=== PATIENT | female | born 1990 | race Caucasian/White ===

== ENCOUNTER 2018-03-17 05:12 | Emergency (ER) | payer OTHER ==
[~2018-03-17] VITALS: Ht 177.8 cm; Wt 145.2 kg
[~2018-03-17 05:12] MED LIST: AUGMENTIN 875875 MG PO; IBUPROFEN 800800 MG PO; VENTOLIN HFA 1818 GM INH
[2018-03-17] MEDS ORDERED: VERAPAMIL E.R240 M1 (05:27)
[2018-03-17] MEDS ORDERED: ALDACTONE100 MG (05:27)
[2018-03-17 05:52] LABS: MCH 28.5 pg (26.0-34.0); MCHC 33.3 g/dL (28.0-37.0); MCV 85.7 fL (80.0-100.0); MPV 10.4 fl. (7.2-11.1); NUCLEATED RBCS 0 /100WBC; PLATELET COUNT* 182 thou/uL (150-400); RBC 5.24 mil/uL (4.20-5.00); RDW-CV 13.7 % (10.5-14.5); WBC 12.5 thou/uL (4.0-11.0)
[2018-03-17 06:01] LABS: PLATELET ESTIMATE ADEQUATE; TOXIC GRANULATION 1+
[2018-03-17 06:07] LABS: CALCIUM 8.8 mg/dL (8.5-10.1); POTASSIUM 4.1 mmol/L (3.5-5.1)
[2018-03-17 06:11] LABS: ALBUMIN 3.5 g/dL (3.4-5.0); TOTAL BILIRUBIN 0.6 mg/dL (<0.1-1.0); TOTAL PROTEIN 6.7 g/dL (6.4-8.2)
[2018-03-17 06:31] LABS: ABSOLUTE BASOPHILS 0.1 thou/uL (0.0-0.2); ABSOLUTE EOSINOPHILS 0.1 thou/uL (0.0-0.7); ABSOLUTE LYMPHOCYTES 0.3 thou/uL (0.8-5.3); ABSOLUTE MONOCYTES 0.8 thou/uL (0.0-1.2); ABSOLUTE NEUTROPHILS 11.3 thou/uL (1.6-8.1)
[2018-03-17] MEDS ORDERED: PHENERGAN 25 MG25 M1 PO (06:36)
[2018-03-17] MEDS ORDERED: PHENERGAN12.5 M2 RECTAL (06:36)
[2018-03-17 06:44] VITALS: BP 136/82
== END 2018-03-17 06:45 | disposition home or self-care (01) ==
LOC: M.ERS 05:12
PROVIDERS: Personal Emergency Response Attendant
DX: K52.9 Noninfective gastroenteritis and colitis, unspecified (principal); J45.909 Unspecified asthma, uncomplicated; G43.909 Migraine, unspecified, not intractable, without status migrainosus; K21.9 Gastro-esophageal reflux disease without esophagitis; Z88.2 Allergy status to sulfonamides

== ENCOUNTER → 2020-04-27 | Day surgery (SDC) | payer OTHER ==
[~2020-04-27] MED LIST changes: +ALDACTONE100 MG; +IMITREX 50 MG T50 MG PO; +METRONIDAZOLE45 GM TOP; +OMEPRAZOLE 20 M20 M1 PO; +PHENERGAN 25 MG25 M1 PO; +PHENERGAN12.5 M2 RECTAL; +PROAIR HFA8.5 GM INH; +SPIRONOLACTONE100 M1 PO; +VERAPAMIL E.R240 M1; +VITAMIN D325 MC3 PO
--- NOTE | ~2020-04-27 | PROC ---
[address] [address] PROCEDURE REPORT Name: CARRIEROGE Room: [facility]#: [id number] Admission: 04/27/20 Attend Phys: Elisabeth Rojas MD Discharge: Date of : 86 Report #: [id number] THIS REPORT FOR: cc: Yudelka Laird Stefany RNP ~ [facility],Medical Records Staff For Gi report, please see the Provation report in Perceptive 7 content. By: [id number] Records Staff [facility] /ALEX
[2020-04-27 09:32] LABS: HEMATOCRIT 42.3 % (37.0-47.0)
[2020-04-27 10:05] LABS: CALCIUM 8.4 mg/dL (8.5-10.1); CREATININE 0.8 mg/dL (0.6-1.3); POTASSIUM 3.8 mmol/L (3.5-5.1)
--- NOTE | 2020-05-11 16:06 | PATH ---
[address] [address] PATHOLOGY RPT PROCEDURE Name: ROGE THOMAS Room: [facility].#: [id number] Admission: 04/27/20 Date of : 86 Discharge: Report #: [id number] Path Case #: [id number] [facility] Accession Number: [id number] . 01 Material submitted: . PART A: duodenum - DUODENAL BIOPSY R/O CELIAC PART B: esophagus - DISTAL ESOPHAGUS R/O IRREGULAR Z LINES BARRETTS. Modifiers: distal . 01 Clinical history: . GERD . 02 Diagnosis: A. Small bowel "duodenum", endoscopic biopsy: - Duodenal mucosa with mild villous blunting and focal reactive lymphoid hyperplasia. - Negative for dysplasia and malignancy. . B. Esophagus "distal": - Esophageal squamous and gastric cardia mucosa with chronic inflammation and features suggestive of reflux esophagitis. - Negative for intestinal metaplasia, dysplasia, and malignancy. . (MIKHAIL:ailyn; 05/03/2020) [facility] 05/09/2020 1215 Local . 02 Comment: The duodenal biopsy shows mild villous blunting and with a follicular The duodenal biopsy shows mild villous blunting and a prominent reactive lymphoid inflammatory infiltrate. Prominent intra-epithelial lymphocytes, active inflammation, or granulomatous inflammation are not identified. The histologic pattern is not specific and can be seen in several clinical settings, including. celiac disease (and related conditions), infectious etiologies, drug induced injury and in Crohn's disease. Clinical correlation is suggested. . 02 Diagnosis provided by: . Francoise Doe MD, Pathologist NPI- [id number] . 03 Electronically signed: . Francoise Doe MD, Pathologist NPI- [id number] . 01 Gross description: . A. Received in formalin labeled "Roge Thomas, duodenal biopsy" are multiple prieto-brown soft tissue fragments measuring in aggregate 0.6 x 0.3 x 0.1 cm. The specimen is submitted entirely in [place]1. [place] [address] PATHOLOGY RPT PROCEDURE Name: ROGE THOMAS Room: [facility]#: [id number] Admission: 04/27/20 Date of : 86 Discharge: Report #: [id number] Path Case #: [id number] . B. Received in formalin labeled "William, Roge, esophagus biopsy" are two prieto-brown soft tissue fragments measuring in aggregate 0.7 x 0.2 x 0.1 cm. The specimen is submitted entirely in B1. ([facility]; 04/28/2020) [facility] 04/28/2020 1616 Local . 02 Microscopic: . Immunohistochemical stain results (properly controlled): BCL-2 (A1) - highlights follicle, with absent staining of germinal center cells. . Special stains (properly controlled): Trichrome (A1) - negative for trophozoites. . (MLK:ailyn; 05/03/2020) . 02 Pathologist provided ICD-10: K20.90, K21.9 . 02 CPT . 448016, 909870, A02710, 300708 Specimen Comment: A courtesy copy of this report has been sent to [phone] Specimen Comment: [id number] Specimen Comment: Report sent to / DR CRISTINA Performed [facility]: [facility] [address] [id number] MD Cali Hathaway MD Phone: [phone] Performed at: 02 [facility] [address] [place], [place] [id number] MD Heber Pinzon MD Phone: [phone] Performed at: 03 [facility] [address] [id number] MD Francisco Arechiga MD Phone: [phone]
== END | disposition home or self-care (01) ==
LOC: M.SUR 08:49
PROVIDERS: ATTEND Internal Medicine Gastroenterology
DX: R10.13 Epigastric pain (principal); K31.89 Other diseases of stomach and duodenum; K21.00 Gastro-esophageal reflux disease with esophagitis, without bleeding; K44.9 Diaphragmatic hernia without obstruction or gangrene; J45.909 Unspecified asthma, uncomplicated; M19.90 Unspecified osteoarthritis, unspecified site; Z98.890 Other specified postprocedural states; Z79.899 Other long term (current) drug therapy; Z88.2 Allergy status to sulfonamides; Z91.040 Latex allergy status